=== PATIENT | female | born 1995 | race Caucasian/White ===

== ENCOUNTER 2020-01-09 19:22 | Emergency (ER) | payer OTHER ==
[~2020-01-09] VITALS: Ht 167.6 cm; Wt 63.5 kg
[2020-01-09 20:23] VITALS: BP 122/62
== END 2020-01-09 20:23 | disposition home or self-care (01) ==
LOC: M.ERS 19:22
DX: B34.9 Viral infection, unspecified (principal); Z20.828 Contact with and (suspected) exposure to other viral communicable diseases